=== PATIENT | female | born 1960 | race Caucasian/White ===

== ENCOUNTER 2017-11-03 16:51 | Inpatient (IN) ==
[2017-11-03 18:37] LABS: Basophils # 0.1 10*3/uL (0.0-0.2); Basophils % 0.9 % (0.0-0.8); Eosinophils # 0.5 10*3/uL (0.0-0.87); Eosinophils % 5.9 % (0.00-10.9); Hematocrit 38.7 VOL% (35.7-47.0); Hemoglobin 12.4 GM/DL (12.0-16.0); Immature Granulocytes % 0.3 %; Immature Granulocytes Absolute 0.03 #; Lymphocytes % 21.5 % (21.3-54.2); Mean Corpuscular Hemoglobin 34 PG (27-34); Mean Corpuscular Volume 105.7 FL (87-102); Mean Platelet Volume 9.3 FL (9.6-12.0); Monocytes # 0.8 10*3/uL (0.11-0.8); Monocytes % 8.6 % (1.7-12.7); Neutrophils # 5.8 10*3/uL (1.4-7.4); Neutrophils % 62.8 % (38.7-73.9); Platelet Count 343 T/CUMM (130-400); Red Blood Count 3.66 MC/CUMM (3.8-5.5); Red Cell Distribution Width 14.6 % (9.3-17.3); White Blood Count 9.2 T/CUMM (4-12)
[2017-11-03 18:57] LABS: Alanine Aminotransferase 18 U/L (13-56); Albumin 3.5 G/DL (3.4-5.0); Alkaline Phosphatase 97 U/L (45-117); Aspartate Amino Transferase 19 U/L (0-37); Bilirubin,Total < 0.39 MG/DL (0.2-1.0); Blood Urea Nitrogen 10 MG/DL (7-18); Calcium 9.1 MG/DL (8.5-10.1); Glucose 83 MG/DL (74-106); Osmolality,Calculated 278.3 MOS/KG (273-304); Potassium 3.6 MMOL/L (3.5-5.1); Sodium 141 MMOL/L (136-145); Total Protein 7.2 G/DL (6.4-8.3)
[2017-11-03 20:27] LABS: Apearance,Urine CLEAR (Clear); Bilirubin,Urine Negative (Negative); Blood, Urine Negative (Negative); Glucose,Urine (UA) Negative (Negative); Ketones,Urine Negative (Negative); Nitrite,Urine Negative (Negative); Protein,Urine Negative; Squamous Epithelial Cell,Urine Occasional /HPF (0-10); Urine Color Straw (Yellow); Urine Specific Gravity 1.004 (1.001-1.035); Urine Urobilinogen < 2.0 EU/DL (0.2-1.0); WBC,Urine <1 /HPF (0-6)
[2017-11-03 20:34] LABS: Barbiturates Screen,Urine Negative (Negative); Benzodiazepines Screen,Urine Negative (Negative); Cannabinoid Screen,Urine Negative (Negative); Opiate Screen,Urine Negative (Negative); Phencyclidine Screen,Urine Negative (Negative)
[2017-11-04] MEDS ORDERED: SODIUM CHLORIDE 0.9% 1,000 ML IV ONE (00:28)
[2017-11-04] MEDS ORDERED: PROMETHAZINE 25 MG/1 ML VIAL IM PRN (00:28)
[2017-11-04] MEDS ORDERED: NICOTINE 21 MG/24 HR PATCH TRANSDERM PRN (00:28)
[2017-11-04] MEDS: SODIUM CHLORIDE 0.9% 1,000 ML IV SCH ×2 (02:58→13:41)
[2017-11-04] MEDS: ONDANSETRON 4 MG/2 ML VIAL IV PRN ×2 (03:09→06:45)
[2017-11-04 05:22] LABS: Basophils # 0.1 10*3/uL (0.0-0.2); Basophils % 0.9 % (0.0-0.8); Eosinophils # 0.5 10*3/uL (0.0-0.87); Hematocrit 42.8 VOL% (35.7-47.0); Hemoglobin 13.4 GM/DL (12.0-16.0); Immature Granulocytes % 0.4 %; Immature Granulocytes Absolute 0.04 #; Lymphocytes # 1.7 10*3/uL (1.4-4.0); Lymphocytes % 17.3 % (21.3-54.2); Mean Corpuscular HGB Conc 31.3 GM/DL (32-36); Mean Corpuscular Hemoglobin 33 PG (27-34); Mean Corpuscular Volume 106.2 FL (87-102); Monocytes # 0.6 10*3/uL (0.11-0.8); Monocytes % 6.1 % (1.7-12.7); Neutrophils % 70.3 % (38.7-73.9); Platelet Count 387 T/CUMM (130-400); Red Blood Count 4.03 MC/CUMM (3.8-5.5); Red Cell Distribution Width 14.6 % (9.3-17.3)
[2017-11-04 05:59] LABS: Albumin 3.6 G/DL (3.4-5.0); Bilirubin,Total 0.6 MG/DL (0.2-1.0); Calcium 8.9 MG/DL (8.5-10.1); Osmolality,Calculated 281.1 MOS/KG (273-304); Potassium 3.6 MMOL/L (3.5-5.1); Total Protein 7.5 G/DL (6.4-8.3)
[2017-11-04] MEDS ORDERED: LORazepam 2 MG/1 ML VIAL IV PRN (09:27)
[2017-11-04] MEDS: LACTATED RINGERS 1,000 ML IV SCH ×3 (10:49→21:55)
[2017-11-04] MEDS: DOCUSATE SODIUM 100 MG CAPSULE PO SCH ×2 (10:50→21:58)
[2017-11-04] MEDS: ENOXAPARIN 40 MG/0.4 ML SYRINGE SUBCUT SCH (10:50)
[2017-11-04] MEDS: PANTOPRAZOLE 40 MG TABLET PO SCH (10:50)
[2017-11-04] MEDS: QUEtiapine 100 MG TABLET PO SCH ×2 (15:59→21:57)
[2017-11-05] MEDS: ONDANSETRON 4 MG/2 ML VIAL IV PRN ×2 (00:05→05:52)
[2017-11-05] MEDS: LACTATED RINGERS 1,000 ML IV SCH (05:49)
[2017-11-05 06:27] LABS: Calcium 9.1 MG/DL (8.5-10.1); Osmolality,Calculated 283.8 MOS/KG (273-304); Potassium 3.6 MMOL/L (3.5-5.1)
[2017-11-05 06:50] LABS: Folate 23.9 NG/ML (5.4-24.0)
[2017-11-05] MEDS ORDERED: CYANOCOBALAMIN 1000 MCG/1 ML VIAL IM ONE (08:15)
[2017-11-05] MEDS: PANTOPRAZOLE 40 MG TABLET PO SCH (09:20)
[2017-11-05] MEDS: DOCUSATE SODIUM 100 MG CAPSULE PO SCH ×2 (09:20→22:12)
[2017-11-05] MEDS: QUEtiapine 100 MG TABLET PO SCH ×3 (09:20→22:14)
[2017-11-05] MEDS ORDERED: traZODone 50 MG TABLET PO PRN (10:01)
[2017-11-05] MEDS ORDERED: ACETAMINOPHEN 500 MG TABLET PO ONE (10:18)
[2017-11-05] MEDS ORDERED: ACETAMINOPHEN 500 MG TABLET PO PRN (10:18)
[2017-11-05] MEDS: DEXT 5% NACL 0.45% KCL 20 MEQ 20 MEQ/1,000 ML BAG IV SCH ×2 (11:52→22:06)
[2017-11-05] MEDS: ENOXAPARIN 40 MG/0.4 ML SYRINGE SUBCUT SCH (11:52)
[2017-11-05] MEDS: BENZTROPINE 0.5 MG TABLET PO SCH (11:53)
[2017-11-05] MEDS: ASPIRIN EC 81 MG TABLET PO SCH (17:18)
[2017-11-05] MEDS: GABAPENTIN 600 MG TABLET PO SCH ×2 (17:18→22:13)
[2017-11-05] MEDS ORDERED: PRAVASTATIN 40 MG TABLET PO SCH (21:00)
[2017-11-06 06:11] LABS: Risk Ratio 7.4; VLDL CHOLESTEROL 25.8 MG/DL
[2017-11-06] MEDS: DEXT 5% NACL 0.45% KCL 20 MEQ 20 MEQ/1,000 ML BAG IV SCH ×2 (07:03→16:33)
[2017-11-06] MEDS ORDERED: VITAMIN E 400 UNIT CAPSULE PO SCH (09:00)
[2017-11-06] MEDS ORDERED: FERROUS SULFATE 325 MG TABLET PO SCH (09:00)
[2017-11-06] MEDS ORDERED: FLUoxetine 20 MG CAPSULE PO SCH (09:00)
[2017-11-06] MEDS ORDERED: CHOLECALCIFEROL 1,000 UNIT TABLET PO SCH (09:00)
[2017-11-06] MEDS: GABAPENTIN 600 MG TABLET PO SCH ×2 (09:23→16:33)
[2017-11-06] MEDS: DOCUSATE SODIUM 100 MG CAPSULE PO SCH (09:24)
[2017-11-06] MEDS: BENZTROPINE 0.5 MG TABLET PO SCH (09:24)
[2017-11-06] MEDS: ENOXAPARIN 40 MG/0.4 ML SYRINGE SUBCUT SCH (09:24)
[2017-11-06] MEDS: PANTOPRAZOLE 40 MG TABLET PO SCH (09:24)
[2017-11-06] MEDS: QUEtiapine 100 MG TABLET PO SCH ×2 (09:24→16:33)
[2017-11-06] MEDS: ASPIRIN EC 81 MG TABLET PO SCH (09:24)
[2017-11-06 15:20] VITALS: BP 136/85
== END 2017-11-06 15:51 | DRG 918 ==
LOC: N.ED 16:51 → N.EDINP 23:24 → N.5E 11-04 00:04
PROVIDERS: ADMIT Family Medicine; ATTEND Family Medicine